=== PATIENT | male | born 1955 | race Caucasian/White ===

== ENCOUNTER 2024-03-01 18:31 | Emergency (ER) | payer MEDICARE, SELFPAY ==
[2024-03-01 18:49] VITALS: BP 127/95; PULSE 63; TEMP 37; O2SAT 99; BMI 25.1
--- NOTE | 2024-03-01 19:15 | ED.SKABFB1 ---
HPI - Skin/Abscess/Foreign Bdy General Chief complaint: Skin/Abscess/Foreign Body Stated complaint: Laceration/Puncture Wound, Sliver in hand Time Seen by Provider: 03/01/24 19:08 Source: patient Mode of arrival: walk-in Limitations: no limitations History of Present Illness HPI narrative: Patient is a 68-year-old male who presents to the ER for evaluation of foreign body in the right hand. Patient states he was working with wood when a piece got stuck between his thumb and index finger in the web. Patient tried removing part. Patient unsure of last tetanus. He is right-hand dominant. Patient appears in no distress. MD complaint: Reports foreign body (wood splinter) Tetanus up to date: no Treatments prior to arrival: Reports other (attempted removal at home) Related Data Home Medications ?Medication ?Instructions ?Recorded ?Confirmed No Known Home Medications 03/01/24 03/01/24 Previous Rx's ?Medication ?Instructions ?Recorded cephalexin 500 mg capsule 500 mg PO TID 5 days #15 caps 03/01/24 Allergies Allergy/AdvReac Type Severity Reaction Status Date / Time No Known Drug Allergies Allergy Verified 03/01/24 18:49 Review of Systems ROS Constitutional Denies: fever or chills Eyes Denies: change in vision or increased production of tears Ears, nose, mouth, and throat Denies: throat pain Cardiovascular Denies: chest pain or palpitations Respiratory Denies: shortness of breath or cough Gastrointestinal Denies: abdominal pain or nausea Genitourinary Denies: painful urination Musculoskeletal Denies: back pain or neck pain Integumentary/Breast Denies: rash Neurological Denies: headache Psychiatric Denies: anxiety Endocrine Denies: excessive urination Exam Narrative Exam Narrative: Nurse's notes and vital signs reviewed. Patient is not hypoxic. General: The patient appears well and in no apparent distress. Patient is resting comfortably on cart. Skin: Warm, dry, no pallor noted. Head: Normocephalic, atraumatic Eye: Normal conjunctiva Respiratory: Patient is in no distress Musculoskeletal: The Hand and wrist shows no obvious deformity. There was no swelling noted. There is a piece of wood that appears to have penetrated through the web of his hand between the index finger and thumb. The patient had full range of motion. The patient had tenderness noted 1st web space The patient had no tenderness in the anatomical snuff box. The patient had no pain with axial loading of the thumb. Pulses are intact at brachial and radial 2+. There was no deficit at the elbow or shoulder. The patient has normal capillary refill to all distal digits. The patient has no evidence of cyanosis or mottling. The patient is able to flex and extend all digits without difficulty. Neurological: A&O x4, normal sensory, normal motor Psychiatric: Cooperative Constitutional Vital Signs, click to edit/add: Last Vital Signs Temp 98.6 F 03/01/24 18:49 Pulse 63 03/01/24 18:49 Resp 16 03/01/24 18:49 BP 127/95 H 03/01/24 18:49 Pulse Ox 99 03/01/24 18:49 O2 Del Method Room Air 03/01/24 18:49 Course Vital Signs Vital signs: Vital Signs Temperature 98.6 F 03/01/24 18:49 Pulse Rate 63 03/01/24 18:49 Respiratory Rate 16 03/01/24 18:49 Blood Pressure 127/95 H 03/01/24 18:49 Pulse Oximetry 99 03/01/24 18:49 Oxygen Delivery Method Room Air 03/01/24 18:49 Temperature 98.6 F 03/01/24 18:49 Pulse Rate 63 03/01/24 18:49 Respiratory Rate 16 03/01/24 18:49 Blood Pressure 127/95 H 03/01/24 18:49 Pulse Oximetry 99 03/01/24 18:49 Oxygen Delivery Method Room Air 03/01/24 18:49 MDM - Skin/Abscess/Foreign Bdy MDM Narrative Medical decision making narrative: Tetanus updated, patient requesting removal of foreign body. Recommend local irrigation, cleansing and numbing for attempted foreign body removal with the risks and benefits discussed. We discussed the complications and possible retained foreign body with attempted removal. Patient given a prescription of Keflex, he admits he is unsure if he will feel this is he feels his hand feels okay. We discussed the risk for infection. He may return to the ER and is given local family doctor and orthopedics for follow-up if needed. Patient appreciative of foreign body removal. I do not feel any additional imaging is appropriate as the wood splinter came out in 1 solid piece The patient is to followup with primary care physician in next 2-3 days or to return to the emergency department should any of the signs or symptoms worsen or new symptoms develop. Patient had questions answered. The patient agrees with the following Diagnosis and Treatment plan and the patient will be discharged home. Discharge Plan Discharge Stand Alone Forms: Portal Instructions Chief Complaint: Skin/Abscess/Foreign Body Clinical Impression: Splinter in skin Foreign body in hand Qualifiers: Encounter type: initial encounter Laterality: right Qualified Code(s): S60.551A - Superficial foreign body of right hand, initial encounter Patient Disposition: Home, Self-Care Time of Disposition Decision: 19:40 Condition: Good Prescriptions / Home Meds: New cephalexin 500 mg capsule 500 mg PO TID 5 Days Qty: 15 0RF No Action No Known Home Medications Print Language: Maltese Instructions: Soft Tissue Foreign Body (ED) Referrals: Tomer Menendez MD [Physician] - As needed Nj Montes MD [Physician] - As needed Procedures ED Procedure Instructions Procedures Procedures: Visible foreign body right hand first webspace between thumb and index finger, piece of wood exiting palmar surface. Skin was cleansed with Betadine, 1 mL of 1% lidocaine with epi was instilled, 11 blade scalpel was used to make a small incision adjacent to the piece of wood protruding, minimal bleeding. Utilizing sterile technique a pair of forceps were used to fully remove the foreign body in 1 piece. The area was irrigated extensively and a sterile gauze bandage was applied. Patient tolerated the procedure well and was very thankful.
--- NOTE | 2024-03-01 19:30 | PC.NURSE ---
LARGE SPLINTER TO RIGHT PROXIMAL INDEX FINGER. WAS ABLE TO PULL PART OF SPLINTER OUT
[2024-03-01] MEDS: ADACEL DIPH,PERTUSS(ACELL),TET VAC/PF 0.5 ML ADULT SYRINGE IM (19:50)
[2024-03-01] MEDS: LIDOCAINE HCL 1%-EPINEPHRINE 1:100,000 10 ML MDV INJ (19:55)
[2024-03-01] MEDS: BACITRACIN 0.9 GM PACKET 1 PACKET TOPICAL (19:55)
== END 2024-03-01 19:57 | disposition home or self-care (01) ==
PROVIDERS: Emergency Provider Emergency Medicine
DX: S60.551A Superficial foreign body of right hand, initial encounter (principal); W45.8XXA Other foreign body or object entering through skin, initial encounter; Z23 Encounter for immunization
CPT/HCPCS: 10120; 90471; 90715; 99283